=== PATIENT | female | born 1980 | race Hispanic/Latino ===

== ENCOUNTER 2017-06-11 18:05 | Emergency (ER) | payer SELFPAY ==
[2017-06-11 18:52] VITALS: BP 122/88; PULSE 88; RESP 16; TEMP 97.8; O2SAT 98
[2017-06-11 19:55] LABS: SQUAMOUS EPITHIAL 18 /hpf (0-5); URINE BACTERIA RARE (<OCC); URINE BILIRUBIN NEGATIVE (NEGATIVE); URINE BLOOD NEGATIVE (NEGATIVE); URINE CLARITY Hazy (Clear); URINE COLOR Yellow (YELLOW); URINE GLUCOSE (UA) 1+ mg/dL (Normal); URINE LEUKOCYTE ESTERASE NEG Leu/uL (Negative); URINE NITRATE NEGATIVE (NEGATIVE); URINE PROTEIN 1+ mg/dL (NEGATIVE); URINE UROBILINOGEN NORMAL mg/dL (0.2-1.0)
[2017-06-11] MEDS ORDERED: DiphenhydrAMINE 50 mg/ml Inj IVP STA (20:03)
[2017-06-11] MEDS ORDERED: Sodium Chloride 0.9% 1,000 ML IV ONE (20:03)
[2017-06-11] MEDS ORDERED: DiphenhydrAMINE 50 mg/ml Inj ONE (20:15)
[2017-06-11 20:16] LABS: BASO # 0.1 K/uL (0.0-0.2); EOS # 0.1 K/uL (0.0-0.7); EOS % 0.9 % (0.0-4.0); LYMPH # 1.4 K/uL (1.0-4.3); LYMPH % 21.4 % (20.0-40.0); MEAN CELL VOLUME 94.5 fL (81.0-99.0); MEAN CORPUSCULAR HEMOGLOBIN 32.8 pg (27.0-31.0); MEAN CORPUSCULAR HGB CONC 34.7 g/dL (33.0-37.0); MEAN PLATELET VOLUME 6.5 fL (7.2-11.7); MONO # 0.7 K/uL (0.0-0.8); MONO % 10.9 % (0.0-10.0); NEUT # 4.4 K/uL (1.8-7.0); NEUT % 65.8 % (50.0-75.0); RBC 4.28 Mil/uL (3.80-5.20); RED CELL DISTRIBUTION WIDTH 11.9 % (11.5-14.5); WHITE BLOOD COUNT 6.6 K/uL (4.8-10.8)
[2017-06-11 20:28] LABS: ALB/GLOB RATIO 1.2 (1.0-2.1); ALBUMIN 4.5 g/dL (3.5-5.0); ALT/SGPT 42 U/L (9-52); AST/SGOT 41 U/L (14-36); BLOOD UREA NITROGEN 11 mg/dL (7-17); CALCIUM 9.7 mg/dl (8.6-10.4); GFR AFRICAN-AMERICAN > 60; GFR NON-AFRICAN AMERICAN > 60
--- NOTE | 2017-06-11 21:17 | C.PDOC ---
History Of Present Illness 37 year old female, with history of Type 1 DM, presents to the ED for evaluation of weakness and generalized body aches which has been intermittent for 2 months. Patient states her symptoms worsened yesterday and presents for further evaluation. At present time, patient states she is anxious and has been stressed lately at work. She denies any active complaints at this time. Time Seen by Provider: 06/11/17 19:27 Chief Complaint (Nursing): Back Pain History Per: Patient History/Exam Limitations: no limitations Onset/Duration Of Symptoms: Intermittent Episodes (2 months ) Current Symptoms Are (Timing): Worse Quality Of Discomfort: Aching Associated Symptoms: denies: Incontinence, New Weakness, New Numbness Additional History Per: Patient Past Medical History Reviewed: Historical Data, Nursing Documentation, Vital Signs Vital Signs: Last Vital Signs Temp 97.8 F 06/11/17 18:49 Pulse 88 06/11/17 18:49 Resp 16 06/11/17 18:49 BP 122/88 06/11/17 18:49 Pulse Ox 98 06/11/17 21:18 - Medical History PMH: No Chronic Diseases Surgical History: No Surg Hx Family History: States: Unknown Family Hx - Social History Hx Alcohol Use: No Hx Substance Use: No Review Of Systems Constitutional: Positive for: Weakness Musculoskeletal: Positive for: Other (generalized body aches ) Psych: Positive for: Anxiety Physical Exam - Physical Exam Appears: Non-toxic, No Acute Distress Skin: Normal Color, Warm, Dry, No Rash Head: Normacephalic Eye(s): bilateral: PERRL Nose: No Flaring, No Discharge Oral Mucosa: Moist Throat: No Erythema, No Drooling Neck: Trachea Midline, Supple Chest: Symmetrical, No Deformity, No Tenderness Cardiovascular: Rhythm Regular, No Murmur Respiratory: No Decreased Breath Sounds, No Accessory Muscle Use, No Rales, No Rhonchi, No Wheezing Gastrointestinal/Abdominal: Soft, No Tenderness, No Distention, No Guarding, No Rebound Back: No CVA Tenderness Extremity: Normal ROM, Capillary Refill (less than 2 seconds ) Neurological/Psych: Oriented x3, Normal Speech, Normal Cognition Gait: Steady ED Course And Treatment - Laboratory Results Result Diagrams: 06/11/17 20:13 06/11/17 20:13 Lab Interpretation: No Acute Changes O2 Sat by Pulse Oximetry: 98 (on RA) Pulse Ox Interpretation: Normal Progress Note: Bloodwork and UA ordered and reviewed. Benadryl IVP, Zofran IVP , and IV Fluids administered. On re-evaluation, pt is afebrile, hemodynamicaly stable, not in any apparent distress. PulsEOx 98% rA. Non-toxic, tolerate Po well in ED. ENT: no acute findings. Neck: Supple, (-) meningeal sign. Lungs: CTA B/L, Bs equal B/L. Abd:benign, (-) guarding, (-) rebound. Blood work review and appears normal, no acute abnormalities. Pt has clinical findings c/w generalized bodyaches. Pt advised. ref. to f/u with PMD, PM in 2-3 days for re -eval. return to ED if any worsening or new changes. Disposition Counseled Patient/Family Regarding: Studies Performed, Diagnosis, Need For Followup - Disposition Referrals: George Castaneda MD, PhD [Staff Provider] - Disposition: HOME/ ROUTINE Disposition Time: 21:19 Condition: STABLE Additional Instructions: Follow up with PMD and Pain Management in 2-3 days for re-evaluation. return to Ed if any worsening or new changes. Instructions: Chronic Fatigue Syndrome (ED) Forms: [employer] (Romanian) - Clinical Impression Clinical Impression: Myalgia - PA / [employer]PERVISOR / Resident Statement MD/DO has reviewed & agrees with the documentation as recorded. - Scribe Statement The provider has reviewed the documentation as recorded by the Scribe (Maria Alejandra Bobo) All medical record entries made by the Scribe were at my direction and personally dictated by me. I have reviewed the chart and agree that the record accurately reflects my personal performance of the history, physical exam, medical decision making, and the department course for this patient. I have also personally directed, reviewed, and agree with the discharge instructions and disposition.
== END 2017-06-11 21:25 | disposition home or self-care (01) ==
LOC: C.ER 18:05
DX: M79.1 Myalgia (principal)
CPT/HCPCS: 80053; 81001; 82009; 85025; 96361; 96374; 99284; J2405; J7040